=== PATIENT | female | born 2000 ===

== ENCOUNTER 2018-03-02 15:34 | Emergency (ER) | payer OTHER ==
[2018-03-02 15:37] VITALS: BP 137/91
[2018-03-02] MEDS ORDERED: LIDOCAINE 2% VISC SLN 15ML UDC ONE (15:46)
[2018-03-02] MEDS ORDERED: TOBDOO OD (15:47)
--- NOTE | 2018-03-02 15:47 | ER Report ---
History and Physical Time Seen By MD: 15:42 Hx. of Stated Complaint: EAR ACHE IN LEFT EAR FOR A COUPLE DAYS. CRYING, CAN'T TOLERATE PAIN ANYMORE. TRYING TO WORK A [employer] SHIFT TODAY AND IT'S TOO PAINFUL HPI/ROS CHIEF COMPLAINT: Left ear pain HISTORY OF PRESENT ILLNESS: 17-year-old otherwise healthy female 2 days of left ear pain assuming a Aly 2 days ago subsequently has been taking Tylenol as codeine and fviv-eda-pirxqby ibuprofen with little to no benefit no fever chills or sweats REVIEW OF SYSTEMS: Respiratory: No cough, no dyspnea. Cardiovascular: No chest pain, no palpitations. Gastrointestinal: No vomiting, no abdominal pain. Musculoskeletal: No back pain. Remainder of the 14 system rev: Yes Allergies: Coded Allergies: No Known Drug Allergies (Unverified , 03/02/18) Home Meds No Active Prescriptions or Reported Meds Reviewed Nurses Notes: Yes Old Medical Records Reviewed: Yes Constitutional Vital Sign - Last 24 Hours 03/02/18 15:37 Temp 98.2 Pulse 93 Resp 12 B/P (MAP) 137/91 Pulse Ox 94 O2 Delivery Room Air Physical Exam General appearance: Alert no distress. Respiratory: Chest is non tender, lungs are clear to auscultation. Cardiac: Regular rate and rhythm [ ] Ear exam left ear shows erythema and redness in the external canal pain with bowel manipulation and palpation of the tinea and the tragus of the left year- old consistent with otitis externa right ear unremarkable DIFFERENTIAL DIAGNOSIS: After history and physical exam differential diagnosis was considered for otitis externa Medical Decision Making ED Course/Re-evaluation ED Course ED clinical course 17-year-old female with clear and obvious otitis externa we' ll start her on TobraDex and give her viscous lidocaine for pain relief and she has Tylenol with codeine at home Decision to Disposition Date: Mar 02, 2018 Decision to Disposition Time: 15:44 Depart Departure Latest Vital Signs Vital Signs Date Time Temp Pulse Resp B/P (MAP) Pulse Ox O2 Delivery O2 Flow Rate FiO2 03/02/18 15:37 98.2 93 12 137/91 94 Room Air Impression: Primary Impression: Otitis externa Condition: Improved Disposition: HOME OR SELF-CARE Referrals: DEVIN STEWARD APRN PEDIATRIC PATHOLOGIST-C 5 Days New Scripts Tobramycin/Dexamethasone (TOBRADEX EYE OINTMENT) 3.5 Gm Oint 3.5 GM OD 2-3XD for PAIN for 7 Days, #60 TUBE apply to left ear 2 times daily for 7 days Prov: UMESH CHE MD 03/02/18 Patient Instructions: Otitis Externa (DC) UMESH CHE MD Mar 02, 2018 15:47
== END 2018-03-02 15:55 | disposition home or self-care (01) ==
LOC: ER 15:41
DX: H60.92 Unspecified otitis externa, left ear (principal)
CPT/HCPCS: 99283